=== PATIENT | male | born 1990 | race Two or more races ===

== ENCOUNTER 2019-02-10 23:44 | Inpatient (IN) | payer OTHER ==
[~2019-02-10] VITALS: Ht 172.7 cm; Wt 74.8 kg
[2019-02-11] MEDS ORDERED: HYDROMORPHONE 1 MG/1 ML DISP.SYRIN IV ONE ×2 (00:30→02:30)
[2019-02-11] MEDS ORDERED: ONDANSETRON 4 MG/2 ML VIAL IV ONE (00:30)
[2019-02-11 00:48] LABS: BASOPHILS % (AUTO) 0.3 % (0.0-2.0); EOSINOPHILS # (AUTO) 0.2 K/uL (0.0-0.7); EOSINOPHILS % (AUTO) 1.7 % (0.0-7.0); HEMATOCRIT 33.4 % (36.7-47.1); LYMPHOCYTES # (AUTO) 2.1 K/uL (20.0-40.0); LYMPHOCYTES % (AUTO) 21.1 % (20.5-51.5); MEAN CORPUSCULAR HEMOGLOBIN 29.9 uug (23.8-33.4); MEAN CORPUSCULAR HGB CONC 33 g/dL (32.5-36.3); MEAN CORPUSCULAR VOLUME 90.9 fL (73.0-96.2); MONOCYTES # (AUTO) 0.8 K/uL (2.0-10.0); MONOCYTES % (AUTO) 8.2 % (0.0-11.0); NEUTROPHILS # (AUTO) 6.9 K/uL (1.8-8.9); NEUTROPHILS % (AUTO) 68.7 % (38.5-71.5); PLATELET COUNT (AUTO) 467 K/uL (152-348); RED BLOOD CELL COUNT(AUTO) 3.68 MIL/uL (4.06-5.63); WHITE BLOOD COUNT (AUTO) 10.1 K/uL (3.6-10.2)
[2019-02-11] MEDS ORDERED: ONDANSETRON 4 MG/2 ML VIAL ONE (00:57)
[2019-02-11] MEDS ORDERED: HYDROMORPHONE 1 MG/1 ML DISP.SYRIN ONE ×2 (00:57→02:26)
[2019-02-11 01:01] LABS: POTASSIUM 3.9 mmol/L (3.5-5.1)
[2019-02-11 01:07] LABS: BILIRUBIN,DIRECT 0.1 mg/dL (0.0-0.2); BILIRUBIN,TOTAL 0.6 mg/dL (0.2-1.0); TOTAL PROTEIN, SERUM 7.5 g/dL (6.4-8.2)
[2019-02-11] MEDS ORDERED: ONDANSETRON 4 MG/2 ML VIAL IV PRN (04:15)
[2019-02-11] MEDS ORDERED: Z GUARD REMEDY PASTE 57 GM TUBE TOP PRN (04:15)
[2019-02-11] MEDS ORDERED: MAGNESIUM HYDROXIDE 30 ML LIQUID UDC PO PRN (04:15)
[2019-02-11] MEDS ORDERED: HYDROMORPHONE 1 MG/1 ML DISP.SYRIN IV PRN (04:15)
[2019-02-11] MEDS ORDERED: ACETAMINOPHEN 325 MG TABLET PO PRN (04:15)
[2019-02-11] MEDS ORDERED: HYDROCODONE/APAP 5-325MG TABLET PO PRN (04:15)
[2019-02-11 06:43] VITALS: BP 134/80
[2019-02-11] MEDS: ENOXAPARIN SODIUM 40 MG/0.4 ML DISP.SYRIN SQ SCH (08:49)
[2019-02-11] MEDS: DOCUSATE SODIUM 100 MG CAPSULE PO SCH ×2 (08:52→20:38)
[2019-02-11] MEDS: OXYCODONE/APAP 5-325 MG TABLET PO PRN ×2 (09:23→20:43)
[2019-02-11] MEDS: KETOROLAC TROMETHAMINE 15 MG INJ IVP PRN ×2 (10:41→18:24)
[2019-02-11 11:09] VITALS: BP 131/64
[2019-02-11 15:06] VITALS: BP 123/66
[2019-02-11 19:50] VITALS: BP 119/89
[2019-02-12] MEDS: KETOROLAC TROMETHAMINE 15 MG INJ IVP PRN ×3 (00:29→15:30)
[2019-02-12 05:08] VITALS: BP 123/88
[2019-02-12 06:54] LABS: BASOPHILS # (AUTO) 0.1 K/uL (0.0-8.0); BASOPHILS % (AUTO) 0.8 % (0.0-2.0); EOSINOPHILS # (AUTO) 0.2 K/uL (0.0-0.7); EOSINOPHILS % (AUTO) 3.1 % (0.0-7.0); HEMATOCRIT 31.6 % (36.7-47.1); HEMOGLOBIN 10.6 g/dL (12.5-16.3); LYMPHOCYTES # (AUTO) 2.2 K/uL (20.0-40.0); LYMPHOCYTES % (AUTO) 27.9 % (20.5-51.5); MEAN CORPUSCULAR HEMOGLOBIN 30.6 uug (23.8-33.4); MEAN CORPUSCULAR HGB CONC 34 g/dL (32.5-36.3); MEAN CORPUSCULAR VOLUME 90.9 fL (73.0-96.2); MONOCYTES # (AUTO) 0.5 K/uL (2.0-10.0); MONOCYTES % (AUTO) 6.5 % (0.0-11.0); NEUTROPHILS # (AUTO) 4.8 K/uL (1.8-8.9); NEUTROPHILS % (AUTO) 61.7 % (38.5-71.5); PLATELET COUNT (AUTO) 444 K/uL (152-348); RED BLOOD CELL COUNT(AUTO) 3.47 MIL/uL (4.06-5.63); WHITE BLOOD COUNT (AUTO) 7.8 K/uL (3.6-10.2)
[2019-02-12 07:03] LABS: CREATININE 0.8 mg/dL (0.6-1.3); PHOSPHOROUS 4.2 mg/dL (2.5-4.9); POTASSIUM 4.1 mmol/L (3.5-5.1)
[2019-02-12] MEDS: DOCUSATE SODIUM 100 MG CAPSULE PO SCH (09:30)
[2019-02-12] MEDS: OXYCODONE/APAP 5-325 MG TABLET PO PRN ×2 (09:31→15:31)
[2019-02-12] MEDS: ENOXAPARIN SODIUM 40 MG/0.4 ML DISP.SYRIN SQ SCH (09:33)
[2019-02-12 10:20] LABS: BILIRUBIN,DIRECT 0.1 mg/dL (0.0-0.2); BILIRUBIN,TOTAL 0.5 mg/dL (0.2-1.0); TOTAL PROTEIN, SERUM 7.1 g/dL (6.4-8.2)
[2019-02-12 11:03] VITALS: BP 145/83
[2019-02-12 15:30] VITALS: BP 138/77
== END 2019-02-12 16:25 | disposition home or self-care (01) | DRG 948 ==
LOC: ER 23:47 → MEDSURG3 02-11 04:17
PROVIDERS: ADMIT Nurse Practitioner Acute Care; ATTEND Internal Medicine
DX: G89.18 Other acute postprocedural pain (principal); E87.0 Hyperosmolality and hypernatremia; D62 Acute posthemorrhagic anemia; S82.302E Unspecified fracture of lower end of left tibia, subsequent encounter for open fracture type I or II with routine healing; S00-T88 Injury, poisoning and certain other consequences of external causes; V03.99XD Pedestrian with other conveyance injured in collision with car, pick-up truck or van, unspecified whether traffic or nontraffic accident, subsequent encounter; Z86.11 Personal history of tuberculosis; I10 Essential (primary) hypertension
CPT/HCPCS: 36415; 70450; 72170; 73030; 73551; 73590; 83735; 84100; 85025; 85730; 97116; 97530; A4663; G0378; J1170; J1650; J1885; J2405

== ENCOUNTER 2019-06-10 21:13 | Emergency (ER) | payer MEDICAID, OTHER ==
[~2019-06-10] VITALS: Ht 170.2 cm; Wt 63.5 kg
--- NOTE | 2019-06-10 22:08 | NUR ---
patient came from home. Pat[place] unable to give history. girlfriend at bedside able to give report. According to the girlfriend, Darlene, patient has been have nausea and vomiting since 06/08/2019. last episode of vomiting was yesterday. She stated she noted nothing abnormal. Girlfriend stated that the patient hasnt eaten all day and has had a lsos of appetite through. Upon assessment, patient denies any pain or discomfort. patient is lethargic, but is able to answer questions appropiately.
[2019-06-10] MEDS ORDERED: ONDANSETRON 4 MG/2 ML VIAL IV ONE (22:30)
[2019-06-10] MEDS ORDERED: IV NORMAL SALINE 1000 ML BAG IV ONE (22:30)
[2019-06-10] MEDS ORDERED: ONDANSETRON 4 MG/2 ML VIAL ONE (22:54)
[2019-06-10 22:59] LABS: BASOPHILS % (AUTO) 0.5 % (0.0-2.0); EOSINOPHILS % (AUTO) 0.9 % (0.0-7.0); HEMATOCRIT 46.7 % (36.7-47.1); HEMOGLOBIN 15.3 g/dL (12.5-16.3); LYMPHOCYTES # (AUTO) 1.8 K/uL (20.0-40.0); LYMPHOCYTES % (AUTO) 34.3 % (20.5-51.5); MEAN CORPUSCULAR HEMOGLOBIN 28.3 uug (23.8-33.4); MEAN CORPUSCULAR HGB CONC 33 g/dL (32.5-36.3); MEAN CORPUSCULAR VOLUME 86.1 fL (73.0-96.2); MONOCYTES # (AUTO) 0.5 K/uL (2.0-10.0); MONOCYTES % (AUTO) 8.7 % (0.0-11.0); NEUTROPHILS # (AUTO) 2.9 K/uL (1.8-8.9); NEUTROPHILS % (AUTO) 55.6 % (38.5-71.5); PLATELET COUNT (AUTO) 216 K/uL (152-348); RED BLOOD CELL COUNT(AUTO) 5.42 MIL/uL (4.06-5.63); WHITE BLOOD COUNT (AUTO) 5.3 K/uL (3.6-10.2)
[2019-06-10 23:06] LABS: ALANINE AMINOTRANSFERASE 10 U/L (16-63); ALKALINE PHOSPHATASE 145 U/L (50-136); ASPARTATE AMINOTRANSFERASE < 5 U/L (15-37); BILIRUBIN,DIRECT 0.1 mg/dL (0.0-0.2); BILIRUBIN,TOTAL 0.5 mg/dL (0.2-1.0); CARBON DIOXIDE 31 mmol/L (21-32); CHLORIDE 106 mmol/L (98-107); CREATININE 0.9 mg/dL (0.6-1.3); GLUCOSE 83 mg/dL (74-106); LIPASE 239 U/L (73-393); POTASSIUM 3.9 mmol/L (3.5-5.1); TOTAL PROTEIN, SERUM 7.9 g/dL (6.4-8.2); UREA NITROGEN, BLOOD 13 mg/dL (7-18)
--- NOTE | 2019-06-10 23:52 | NUR ---
Patient discharged to home in stable conditon. Written and verbal after care instructions given. Patient verbalizes understanding of instructions. patient self ambulatory with steady gait. patient alert and oriented x4. Exit care package and eprsonal belongings taken home with the patient. Patient denies any pain or respiratory distress at discharge.
[2019-06-10 23:53] VITALS: BP 110/76
== END 2019-06-10 23:54 | disposition home or self-care (01) ==
LOC: ER 21:13
DX: R10.9 Unspecified abdominal pain (principal); R11.0 Nausea; R63.1 Polydipsia; F12.10 Cannabis abuse, uncomplicated
CPT/HCPCS: 36415; 74176; 80048; 80076; 83690; 85025; 96374; 99284; J2405; A4663; J7030